=== PATIENT | male | born 2005 | race Asian ===

== ENCOUNTER 2025-01-06 13:25 | Emergency (ER) | payer OTHER ==
[~2025-01-06] VITALS: Ht 165.1 cm; Wt 61.0 kg
[2025-01-06 13:38] VITALS: O2SAT 100
[2025-01-06] MEDS ORDERED: NEOM28.37 TP (17:43)
[2025-01-06] MEDS: TETANUS, DIPHTHERIA, PERTUSSIS VAC/PF 0.5ML (>10YR OLD) IM ONE (17:57)
[2025-01-06 18:39] VITALS: BP 130/55; PULSE 57; RESP 18; TEMP 37.1; O2SAT 100
== END 2025-01-06 18:40 | disposition home or self-care (01) ==
LOC: ER 13:25
DX: S61.201A Unspecified open wound of left index finger without damage to nail, initial encounter (principal); W26.8XXA Contact with other sharp object(s), not elsewhere classified, initial encounter; Y93.89 Activity, other specified; Y92.89 Other specified places as the place of occurrence of the external cause; Y99.8 Other external cause status
CPT/HCPCS: 73140; 90715; 90471; 99283; Z7610